=== PATIENT | male | born 1985 | race Caucasian/White ===

== ENCOUNTER → 2024-07-15 | Outpatient (CLI) | payer BC ==
[2024-07-23 06:52] LABS: CALPROTECTIN,FECAL 93 ug/g (<=49)
== END ==
LOC: LAB SHORT 17:42 → LAB 17:42
PROVIDERS: Physician Assistant Medical
DX: K51.00 Ulcerative (chronic) pancolitis without complications (principal)
CPT/HCPCS: 83993

== ENCOUNTER 2024-09-28 11:09 | Day surgery (SDC) | payer BC, OTHER ==
[~2024-09-28] VITALS: Ht 170.2 cm; Wt 89.9 kg
[~2024-09-28 11:09] MED LIST: Lactated Ringer's 1,000 ML IV ONE; propofoL 50 ML IV ONE
[2024-09-28] MEDS ORDERED: MESALAMINE 1.2 GM (12:00)
[2024-09-28] MEDS ORDERED: Lactated Ringer's 1,000 ML IV ONE (12:41)
[2024-09-28] MEDS ORDERED: Midazolam HCL 1 MG/ML 5MLVIAL ONE (13:23)
== END 2024-09-28 14:12 | disposition home or self-care (01) ==
LOC: ORSCSDS 11:09
PROVIDERS: Internal Medicine Gastroenterology
PROC: 0DBE8ZX Excision of Large Intestine, Via Natural or Artificial Opening Endoscopic, Diagnostic (ICD-10-PCS; principal; 2024-09-28 12:30)
DX: K51.90 Ulcerative colitis, unspecified, without complications (principal); F17.290 Nicotine dependence, other tobacco product, uncomplicated; Z79.899 Other long term (current) drug therapy
CPT/HCPCS: 88305; J2250; J2704; J7120